=== PATIENT | male | born 1970 | race Caucasian/White ===

== ENCOUNTER → 2018-08-25 11:07 | Outpatient (CLI) | payer SELFPAY ==
--- NOTE | 2018-08-25 11:14 | US_ITS ---
STUDY: SCROTUM ULTRASOUND REASON FOR EXAM: Male, 47 years old. Pain TECHNIQUE: Ultrasound evaluation of the scrotum was performed with color Doppler and static corey-scale imaging. COMPARISON: None. FINDINGS: RIGHT TESTICLE INTRATESTICULAR: There is a normal size of the right testicle. The right testicle measures 4.4 x 3.0 x 2.1 cm. There is a homogenous echotexture. There is normal arterial and normal venous vascularity. There is no demonstrated right testicular mass or cyst. EXTRATESTICULAR: The epididymis is normal in size. The epididymis head measures 1.0 cm. There is normal vascularity of the epididymis. There is no demonstrated epididymal cystic structure. There is no demonstrated hydrocele. There is no demonstrated varicocele. There is no demonstrated extratesticular mass or cyst. LEFT TESTICLE INTRATESTICULAR: There is a normal size of the left testicle. The left testicle measures 4.6 x 3.0 x 2.0 cm. There is a homogenous echotexture. There is normal arterial and normal venous vascularity. There is no demonstrated left testicular mass or cyst. EXTRATESTICULAR: The epididymis is normal in size. The epididymis head measures 1.8 cm. There is normal vascularity of the epididymis. There is an 8 mm epididymal cyst There is no demonstrated hydrocele. There are prominent extratesticular veins consistent with a varicocele. There is no demonstrated extratesticular mass or cyst. US/Testicular with Arterial Flow IMPRESSION: Normal bilateral testicles. 6 8 mm left epididymal cyst Left varicocele demonstrated with Valsalva Electronically Signed: Errol Elizabeth MD at 15:26 EST , Service support ,
== END ==
DX: R10.2 Pelvic and perineal pain (principal)
CPT/HCPCS: 76870; 93976